=== PATIENT | male | born 1945 | race Caucasian/White ===

== ENCOUNTER 2016-09-28 13:14 | Day surgery (SDC) | payer MEDICARE, OTHER ==
[~2016-09-28] VITALS: Ht 182.9 cm; Wt 106.0 kg
[~2016-09-28 13:14] MED LIST: AMLO10TA3 PO; FLUT9.9S NS; LISI1TAB9 PO; LOVA40TA PO; Lactated Ringer's 1,000 ML IV ONE; MULT-1104 PO; MULT-896 PO; OMEP20CA11 PO; TERA5CAP6 PO; UBID100C16 PO
[2016-09-28] MEDS ORDERED: Lactated Ringer's 1,000 ML IV SCH (13:39)
[2016-09-28] MEDS ORDERED: Ondansetron 2 mg/mL 2 mL Inj IVPUSH PRN (13:40)
[2016-09-28] MEDS ORDERED: MetoCLOpramide 5 mg/mL 2 mL Inj IVPUSH PRN (13:40)
[2016-09-28 13:41] VITALS: BP 141/91; PULSE 66; RESP 14; O2SAT 97
[2016-09-28] MEDS ORDERED: Lactated Ringer's 1,000 ML IV ONE (14:06)
[2016-09-28 14:25] VITALS: BP 128/73; PULSE 60; RESP 16; O2SAT 97
[2016-09-28 14:39] VITALS: BP 141/89; PULSE 57; RESP 14; O2SAT 96
[2016-09-28 14:49] VITALS: BP 148/87; PULSE 65; RESP 14; O2SAT 98
--- NOTE | 2016-09-28 15:05 | ENDO ---
[address] [address] ENDOSCOPY PROCEDURE PATIENT: ABI CHRISTIANSON : 1945 MR#: [id number] ADMIT: 09/28/2016 JOB ID: [id number] DATE: 09/28/2016 PROCEDURE: Colonoscopy. INDICATION: Screening. The patient's ASA classification, Mallampati score and medications as per anesthesia note by Dr. Efren Welch. INSTRUMENT USED: PCF H 180 AL. PREPARATION QUALITY: Was good. PROCEDURE DETAILS: After informed consent was obtained, the patient was brought into the GI suite, where he was placed on oxygen via nasal cannula and monitored with continuous pulse oximeter, telemetry and blood pressure monitoring. A time-out was performed. Then, he was placed in the left lateral decubitus position and medications were administered for sedation. Digital rectal examination with palpation of the prostate was performed, which was unremarkable. The colonoscope was then inserted into the rectum and advanced under direct visualization to the cecum, which was identified by the presence of the ileocecal valve and appendiceal orifice. Once the cecum was reached, the colonoscope was withdrawn back into the rectum as the mucosa and lumen were examined. In the rectum, retroflexion was performed. Following retroflexion, remaining air in the rectum was suctioned and the procedure was completed. FINDINGS: 1. In the descending colon, there was a diminutive polyp that was removed with cold biopsy forceps. 2. Scattered throughout the left side of the colon were diverticula. IMPRESSION: 1. Descending colon polyp. 2. Left-sided diverticulosis. RECOMMENDATIONS: 1. Fiber rich diet. 2. Repeat colonoscopy pending polyp pathology results. COMPLICATIONS: None. ESTIMATED BLOOD LOSS: Less than 5 mL.
--- NOTE | 2016-09-28 17:45 | PCM.ANEP2 ---
Post Anesthesia Evaluation ASA/CMS Post Anesthesia VS in Patient's Normal Range?: Yes Resp Stable; Airway Patent?: Yes CV Function & Hydration Stable: Yes Mental Status Recovered?: Yes Pain control Satisfactory?: Yes N/V Control Satisfactory?: Yes Efren Welch MD Sep 28, 2016 17:45
--- NOTE | 2016-09-28 17:45 | PCM.ANEP1 ---
Post Anesthesia Phase 1 PACU Phase 1 Assessment Vital Signs Vital Signs Date Time Temp Pulse Resp B/P Pulse Ox O2 Delivery O2 Flow Rate FiO2 09/28/16 14:49 65 14 148/87 98 Room Air 09/28/16 14:39 57 14 141/89 96 Room Air 09/28/16 14:25 36.1 60 16 128/73 97 Room Air 09/28/16 13:41 36.5 66 14 141/91 97 Room Air Anesthetic Administered: MAC Level of Alertness: Awake, talking BARCLAY's with Equal Strength: Yes Pain: No Nausea or Vomiting: No Oxygen Delivery: Room Air Lungs: Clear to Auscultation, Normal Air Movement Dermatome Level: Full Sensation Efren Welch MD Sep 28, 2016 17:45
--- NOTE | 2016-09-28 17:45 | PCM.HPANE ---
Patient Data Surgeon Admitting Provider: Attending Provider:Andrews Maier MD Primary Care Physician:Sanchez Tate MD Other Provider:Anuradha Acevedo Anesthesia Reason for Visit Screening Ht/WT & BMI Body Mass Index Allergies Coded Allergies: No Known Drug Allergies (Verified Allergy, Unknown, 09/27/16) Past Anesthesia History Anesthesia History: Denies:: Abnormal Airway, Anesthesia Reactions, Difficult Intubation, Fam Anesthesia Reaction, Fam Malignant Hypertherm, Malignant Hyperthermia Diabetes History Hx Diabetes?: No MRSA MRSA: No Medications Reported Medications Multivit-Min/FA/Lycopen/Lutein (Centrum Silver Men Tablet)300 Mcg-600 Mcg-300 Mcg Tablet1 Each PO DAILY 09/27/16 Terazosin 5 Mg Capsule5 Mg PO HS Ref 0 08/22/16 Omeprazole 20 Mg Capsule.dr20 Mg PO DAILY Ref 0 08/22/16 Lovastatin 40 Mg Ocafse05 Mg PO HS #30 TABLET Ref 0 08/22/16 Lisinopril / HCTZ 20-12.5 mg 1 Each Tablet1 Each PO DAILY Ref 0 08/22/16 Fluticasone Propionate (Flonase Allergy Relief)50 Mcg/Actuation [place].susp9.9 Ml NS DAILY 08/22/16 Ubidecarenone (Coq-10)100 Mg Flotfln645 Mg PO DAILY 08/22/16 Amlodipine 10 Mg Abmukd18 Mg PO DAILY Ref 0 08/22/16 Discontinued Reported Medications Fluticasone Propionate (Flonase Allergy Relief)50 Mcg/Actuation [place].susp9.9 Ml NS DAILY 09/27/16 Multivitamin W-Minerals/Lutein (Centrum Silver Ultra Men's Tab)1 Each Tablet1 Each PO DAILY 08/22/16 History HEENT History: Positive for:: Hearing Problem Denies:: Abnormal Airway Difficult Intubation Dysphagia Hx of Heart Problems?: Yes Cardiovascular History: Positive for:: Hypertension (controlled) Denies:: AICD Atrial Fibrillation Chest Pain Pacemaker Valvular Heart Disease Hx of Respiratory Problem?: No Neurological History: Denies:: CVA Hx of GI Problems?: Yes Gastrointestinal History: Positive for:: Gastroesphageal Reflux (controlled with ppi) Denies:: Cirrhosis Diverticulitis Hiatal Hernia Rectal Bleeding Hx of Problems?: No Hx Musculoskeletal Problems?: No Musculoskeletal History: Denies:: Joint Replacement Psycho Social History: Denies:: Anxiety Hx Depression Hx Surgeries?: Yes (hh repair, hernia repair, tonsils, skin removals,) Hx Any Other Health Problems?: Yes Hx Diabetes: No Hx Alcohol Use: Yes (once twice a month)Have You Smoked inLast 12 mo: No Stop/Bang Risk Assessment Category Category 1A: Patient has history of documented sleep apnea, and HAS NOT received any narcotic, sedative or anesthesia administration during this stay. Category 1B: Patient has history of documented sleep apnea, and HAS received any narcotic , sedative or anesthesia administration during this stay Category 2: Patient has SUSPECTED Obstructive Sleep Apnea, and HAS received any narcotic , sedative or anesthesia administration during this stay. Category 3: Patient has SUSPECTED Obstructive Sleep Apnea and HAS NOT received narcotic, sedative or anesthesia administration during this stay. Category 4: Outpatient in Procedural Areas with known sleep apnea or who screen positive for High Risk via the STOP/BANG questionnaire. Exam Exam General Appearance: Alert, Oriented X3, Cooperative, No Acute Distress HEENT/AIRWAY: MP 2 Lungs: Clear to Auscultation, Normal Air Movement Heart: Exam Unremarkable, Regular Rate/Rhythm, No Murmurs/Rubs/Gallops Plan Impression Patient chart reviewed, patient interviewed and anesthestic plan with risks, benefits, and alternatives discussed, and informed consent obtained. NPO Status: > 8 hrs ASA Physical Status: ASA2 Mod Systemic Disease Anesthetic Plan: MAC Bene/Risks/Altern/Consents: Yes HP Complete Prior to Induction: Yes Efren Welch MD Sep 28, 2016 07:31
--- NOTE | 2016-10-02 16:31 | PATH ---
SURGICAL PATHOLOGY Attending Physician:Ian Jacinto CASE STATUS: Signed Out PATIENT NAME: ABI CHRISTIANSON PID: [id number] : 1945 DATE COLLECTED:09/29/2016 17:01 SPECIMEN: Colon, Biopsy CLINICAL HISTORY: DESCENDING COLON POLYP FINAL DIAGNOSIS: 1.DESCENDING COLON POLYP: TUBULAR ADENOMA. ICD10 CODE D12.4 GROSS DESCRIPTION: The specimen is received in one formalin filled container labeled with the patient's name, sublabeled "descending colon polyp" and consists of a 0.2 x 0.2 x 0.2 CM portion of tissue which is entirely submitted in one cassette. 09/29/2016 DAC MICRO DESCRIPTION: See diagnosis. ICD-9 CODES: CPT CODES: 1: 23941 Electronically Signed Out Lorenza Garcia MD [facility] [address], [place] [address] Technical component performed at [facility], [facility] [address], [place], [address]
== END 2016-09-28 23:59 | disposition home or self-care (01) ==
LOC: END 13:14
PROVIDERS: ATTEND Internal Medicine Gastroenterology
DX: Z12.11 Encounter for screening for malignant neoplasm of colon (principal); Z86.010 Personal history of colon polyps; D12.4 Benign neoplasm of descending colon; K57.30 Diverticulosis of large intestine without perforation or abscess without bleeding; I10 Essential (primary) hypertension; G47.33 Obstructive sleep apnea (adult) (pediatric)
CPT/HCPCS: 45380; J7120